=== PATIENT | female | born 1985 | race Caucasian/White ===

== ENCOUNTER 2021-10-02 09:55 | Observation (INO) | payer OTHER ==
[~2021-10-02] VITALS: Ht 170.2 cm; Wt 81.6 kg
[2021-10-02 10:56] LABS: HEMOGLOBIN 13.3 gm/dl (12.3-15.3); RED BLOOD COUNT 4.16 M/UL (4.00-5.10); WHITE BLOOD COUNT 11.6 K/UL (4.5-11.0)
[2021-10-02 11:19] LABS: BUN/CREATININE RATIO 13 (0-10)
--- NOTE | 2021-10-02 18:00 | NUR ---
NOTIFIED OF PATIENT PTT ORDER RECHECK AT 1900 WCTM
[2021-10-03 09:03] LABS: HEMOGLOBIN 11.4 gm/dl (12.3-15.3); WHITE BLOOD COUNT 9.6 K/UL (4.5-11.0)
[2021-10-03 09:07] LABS: RED BLOOD COUNT 3.62 M/UL (4.00-5.10)
[2021-10-03 10:11] LABS: BUN/CREATININE RATIO 7 (0-10)
[2021-10-03] MEDS ORDERED: ELIQUIS 5 MG TAB5 MG PO (11:05)
== END 2021-10-03 13:50 | disposition home or self-care (01) ==
LOC: ER1 09:55 → CDU 13:59 → M/S 13:59
PROVIDERS: Physician Assistant; ADMIT Internal Medicine
DX: I26.99 Other pulmonary embolism without acute cor pulmonale (principal); I10 Essential (primary) hypertension; F17.210 Nicotine dependence, cigarettes, uncomplicated; R00.0 Tachycardia, unspecified; Z20.822 Contact with and (suspected) exposure to COVID-19; J98.11 Atelectasis
CPT/HCPCS: 36415; 80048; 80053; 82550; 82553; 83735; 83874; 84484; 85025; 85027; 85610; 85730; 93005; 96374; 96375; 99285; G0378; J1644; J1885; J2270; J2405; J7030; Q9967; U0002

== ENCOUNTER 2022-01-21 14:04 | Emergency (ER) | payer OTHER ==
[~2022-01-21 14:04] MED LIST: ELIQUIS 5 MG TAB5 MG PO
[2022-01-21 15:22] LABS: RED BLOOD COUNT 5.16 M/UL (4.00-5.10); WHITE BLOOD COUNT 7.6 K/UL (4.5-11.0)
[2022-01-21 15:44] LABS: BUN/CREATININE RATIO 13 (0-10)
[2022-01-21] MEDS ORDERED: ELIQUIS5 MG PO (18:36)
== END 2022-01-21 19:00 | disposition home or self-care (01) ==
LOC: ER1 14:04
PROVIDERS: Physician Assistant
DX: I82.811 Embolism and thrombosis of superficial veins of right lower extremity (principal); Z76.0 Encounter for issue of repeat prescription; F17.210 Nicotine dependence, cigarettes, uncomplicated; I10 Essential (primary) hypertension; Z86.711 Personal history of pulmonary embolism; Z79.01 Long term (current) use of anticoagulants
CPT/HCPCS: 80048; 85025; 93971; 99284